=== PATIENT | female | born 1970 | race Caucasian/White ===

== ENCOUNTER 2017-09-29 15:24 | Outpatient (CLI) | payer BC ==
--- NOTE | 2017-09-30 09:36 | MMO ---
BILATERAL DIGITAL SCREENING MAMMOGRAMS: Date: 09/29/17 HISTORY: 47-year-old female presents for digital screening mammogram. COMPARISON: 05/16/15, 05/04/14. FINDINGS: This patient's mammogram was interpreted with the assistance of computer-aided detection. Scattered areas of fibroglandular density are noted bilaterally. There are some benign-appearing [place] calcifications in the upper outer right breast, showing no significant change from prior exam. N o mammographic evidence for malignancy. IMPRESSION: BIRADS 2: Benign Finding(s) Continue routine annual screening mammograms. POS: DON
== END 2017-09-29 15:25 | disposition home or self-care (01) ==
LOC: SCSMAMMO 15:24
PROVIDERS: ATTEND Family Medicine
DX: Z12.31 Encounter for screening mammogram for malignant neoplasm of breast (principal)
CPT/HCPCS: 77067